=== PATIENT | female | born 1990 | race Caucasian/White ===

== ENCOUNTER → 2019-04-02 | Outpatient (CLI) | payer OTHER ==
[2019-04-02 17:24] LABS: BASO # 0.1 10^3/uL (0.0-0.2); BASO % 0.4 % (0.0-1.0); EOS # 0.1 10^3/uL (0.0-0.50); EOS % 0.9 % (0.0-3.0); LYMPH # 3.7 10^3/uL (1.5-6.5); LYMPH % 27.2 % (24.0-44.0); MEAN CORPUSCULAR HEMOGLOBIN 31.7 pg (27.0-33.0); MEAN CORPUSCULAR HGB CONC 34.1 g/dl (32.0-36.5); MONO # 0.9 10^3/uL (0.0-0.8); MONO % 6.7 % (0.0-5.0); NEUTROPHILS # 8.8 10^3/uL (1.8-7.7); NEUTROPHILS % 64.2 % (36.0-66.0); PLATELET COUNT, AUTOMATED 237 10^3/uL (150-450); RED BLOOD COUNT 4.41 10^6/uL (4.00-5.40); WHITE BLOOD COUNT 13.8 10^3/uL (4.0-10.0)
[2019-04-02 20:31] LABS: CHLAMYDIA DNA AMPLIFICATION NEGATIVE (NEGATIVE); GC DNA AMPLIFICATION NEGATIVE (NEGATIVE)
[2019-04-04 10:45] LABS: HEPATITIS C VIRUS ABY INDEX 0.1 INDEX (<0.8); HIV 1&2 SCREEN CENTAUR NEGATIVE (NEGATIVE); RUBELLA IgG QUALITATIVE IMMUNE (IMMUNE)
== END ==
LOC: M SMT 14:40
PROVIDERS: ATTEND Advanced Practice Midwife
DX: Z36.89 Encounter for other specified antenatal screening (principal)

== ENCOUNTER → 2019-05-28 | Outpatient (CLI) | payer OTHER ==
[~2019-05-28] MED LIST: CEFD300CAP PO
== END ==
LOC: M SMT 13:50
PROVIDERS: ATTEND Advanced Practice Midwife
DX: Z13.79 Encounter for other screening for genetic and chromosomal anomalies (principal)

== ENCOUNTER 2019-06-02 15:03 | Emergency (ER) | payer OTHER ==
[~2019-06-02] VITALS: Ht 157.5 cm; Wt 86.3 kg
[2019-06-02] MEDS: IPRATROPIUM 0.5MG/ALBUTEROL 2.5MG INH SOL UD 3ML (DUONEB)(J7620) NEB PRN ×2 (17:21→19:29)
[2019-06-02 17:27] LABS: BASO % 0.3 % (0.0-1.0); EOS # 0.1 10^3/uL (0.0-0.5); EOS % 0.6 % (0.0-3.0); HEMATOCRIT 34.4 % (36.0-47.0); HEMOGLOBIN 11.9 g/dl (12.0-15.5); LYMPH # 2.4 10^3/uL (1.5-5.0); MEAN CORPUSCULAR HEMOGLOBIN 32.3 pg (27.0-33.0); MEAN CORPUSCULAR HGB CONC 34.6 g/dl (32.0-36.5); MEAN CORPUSCULAR VOLUME 93.5 fl (80.0-96.0); MONO # 0.6 10^3/uL (0.0-0.8); NEUTROPHILS # 8.3 10^3/uL (1.5-8.5); NEUTROPHILS % 72.6 % (36.0-66.0); PLATELET COUNT, AUTOMATED 180 10^3/uL (150-450); RED BLOOD COUNT 3.68 10^6/uL (4.00-5.40); WHITE BLOOD COUNT 11.5 10^3/uL (4.0-10.0)
[2019-06-02 17:48] LABS: BLOOD UREA NITROGEN 5 MG/DL (7-18); CALCIUM LEVEL 8.9 MG/DL (8.5-10.1); CARBON DIOXIDE LEVEL 24 MEQ/L (21-32); CHLORIDE LEVEL 106 MEQ/L (98-107); CK-MB VALUE MASS < 1.0 NG/ML (<3.6); CPK CREATINE PHOSPHOKINASE 43 U/L (26-192); CREATININE FOR GFR 0.55 MG/DL (0.55-1.30); GLOMERULAR FILTRATION RATE > 60.0 (>60); GLUCOSE, FASTING 79 MG/DL (70-100); MB/CK RELATIVE INDEX 2.33 (< OR =4); POTASSIUM SERUM 3.5 MEQ/L (3.5-5.1); SODIUM LEVEL 140 MEQ/L (136-145); TROPONIN I < 0.02 NG/ML (< 0.10)
[2019-06-02] MEDS ORDERED: CEFDINIR 300 MG CAP (OMNICEF) PO ONE (19:15)
[2019-06-02] MEDS ORDERED: CEFD300CAP PO (19:16)
[2019-06-02 20:03] VITALS: BP 122/75
--- NOTE | 2019-06-02 21:02 | ECGEPIP ---
[facility] - ED Test Date: 2019-06-02 Pat Name: MORALES SCOTT Department: Room: - Gender: Female Licensed Home Inspector: matthieu : 1990 Requested By: Haritha Deleon Order Number: [id number] Reading MD: Haritha Deleon Measurements Intervals [place] Rate: 109 P: 42 ID: [id number] QRS: 43 QRSD: 86 T: 24 QT: 337 QTc: 454 Interpretive Statements SINUS TACHYCARDIA ABNORMAL RHYTHM ECG NO PRIOR Electronically Signed on 06-02-2019 21:01:46 EDT by Haritha Deleon
== END 2019-06-02 20:07 | disposition home or self-care (01) ==
LOC: M ED 15:03
DX: O99.512 Diseases of the respiratory system complicating pregnancy, second trimester (principal); J18.9 Pneumonia, unspecified organism; Z3A.18 18 weeks gestation of pregnancy; J45.909 Unspecified asthma, uncomplicated; Z86.59 Personal history of other mental and behavioral disorders; Z87.19 Personal history of other diseases of the digestive system; Z88.0 Allergy status to penicillin

== ENCOUNTER → 2019-06-05 | Outpatient (CLI) | payer OTHER ==
--- NOTE | 2019-06-05 16:52 | REP ---
OB ULTRASOUND: Real-time sonographic evaluation of the gravid uterus performed. There is a single living intrauterine gestation, estimated gestational age 19 weeks, EDC 10/30/2019. Today's measurements indicate appropriate growth. BPD 44 mm = 19 weeks 2 days, 57th percentile HC 163 mm = 19 weeks 0 days, 51st percentile AC 137 mm = 19 weeks 1 days, 53rd percentile FL 30 mm = 19 weeks 2 days, 58th percentile HC/AC ratio 1.19, within normal range. Estimated weight 280 grams, 55th percentile. Cervix is closed and measures 4.3 cm in length. heart rate 144 beats per minute. SEEN/GROSSLY UNREMARKABLE Lateral ventricles yes Posterior fossa yes Upper lip no Four-chamber heart yes LVOT yes RVOT yes Stomach yes Cord insertion yes Three vessel cord yes Kidneys no Bladder yes Spine no position: Transverse with head toward the maternal right side. Placenta: Posterior and grade 0 with no previa or abruption. Amniotic fluid: Within normal limits. Electronically Signed by Rainer Goldman MD 06/05/2019 06:07 P
== END ==
LOC: M RAD 12:45
PROVIDERS: ATTEND Advanced Practice Midwife
DX: Z34.82 Encounter for supervision of other normal pregnancy, second trimester (principal); Z36.89 Encounter for other specified antenatal screening; Z3A.19 19 weeks gestation of pregnancy

== ENCOUNTER → 2019-07-22 | Outpatient (CLI) | payer OTHER ==
--- NOTE | 2019-07-22 12:20 | REP ---
OB ULTRASOUND: Real-time sonographic evaluation of gravid uterus performed. There is a single living intrauterine gestation, estimated gestational age 25 weeks 5 days, EDC 10/30/2019. Today's measurements indicate appropriate growth BPD 60 mm = 24 weeks 4 days, 26th percentile HC 230 mm = 25 weeks 0 days, 35th percentile AC 211 mm = 25 weeks 4 days, 40th percentile Femur length 47 mm = 25 weeks 6 days, 53rd percentile HC/AC ratio 1.09, within normal range. Estimated weight 826 grams, 39th percentile. Cervix is closed and measures 4.3 cm in length. heart rate 141 beats per minute. Visualized anatomy includes upper lip, kidneys, and spine, which were not seen on the prior study of 06/05/2019. These structures are grossly unremarkable. position is vertex. Placenta is posterior and grade 0 with no previa or abruption. Amniotic fluid within normal limits. Electronically Signed by Rainer Goldman MD 07/23/2019 10:31 A
== END ==
LOC: M RAD 10:39
PROVIDERS: ATTEND Advanced Practice Midwife
DX: Z34.82 Encounter for supervision of other normal pregnancy, second trimester (principal); Z3A.25 25 weeks gestation of pregnancy

== ENCOUNTER → 2019-07-27 | Outpatient (REF) | payer OTHER ==
[2019-07-27 20:13] LABS: CHLAMYDIA DNA AMPLIFICATION NEGATIVE (NEGATIVE); GC DNA AMPLIFICATION NEGATIVE (NEGATIVE)
== END ==
LOC: M SFHCLERA 17:00
PROVIDERS: ATTEND Nurse Practitioner Family
DX: N89.8 Other specified noninflammatory disorders of vagina (principal)
CPT/HCPCS: 81002; 81025; 87070; 87661; G0463

== ENCOUNTER → 2019-08-19 | Outpatient (REF) | payer OTHER | LOC: M SFHCLERA 16:26 | PROVIDERS: ATTEND Nurse Practitioner Family | DX: R53.81 Other malaise (principal) ==

== ENCOUNTER → 2019-09-05 | Outpatient (CLI) | payer OTHER ==
[2019-09-05 17:26] LABS: HEMATOCRIT 36.3 % (36.0-47.0); HEMOGLOBIN 11.2 g/dl (12.0-15.5); MEAN CORPUSCULAR HEMOGLOBIN 28.7 pg (27.0-33.0); MEAN CORPUSCULAR HGB CONC 30.9 g/dl (32.0-36.5); MEAN CORPUSCULAR VOLUME 93.1 fl (80.0-96.0); PLATELET COUNT, AUTOMATED 198 10^3/uL (150-450); WHITE BLOOD COUNT 10.5 10^3/uL (4.0-10.0)
== END ==
LOC: M PLALAB 13:41
PROVIDERS: ATTEND Advanced Practice Midwife
DX: Z34.82 Encounter for supervision of other normal pregnancy, second trimester (principal); Z3A.00 Weeks of gestation of pregnancy not specified

== ENCOUNTER → 2019-09-15 | Outpatient (CLI) | payer OTHER ==
[~2019-09-15] MED LIST changes: +ACET-683 PO; +IBUP80TA PO; +OMEP-218 PO; +PRENTAB9 PO; +TUMS750C5 PO
--- NOTE | 2019-09-16 02:34 | REP ---
Clinical: Anatomical evaluation. Comparison: 07/22/2019. Findings: Examination demonstrates a single live intrauterine in cephalic presentation. motion is identified by technologist. Placenta is noted posterior and grade I I without evidence for placenta previa or abruption. Amniotic fluid volume is normal. Cervix measures 3.7 cm in length and appears closed. No evidence for nuchal cord. Gestational age by LMP 33 weeks 4 days with EMILY 10/30/2019 . Gestational age by first US 33 weeks 4 days with EMILY 10/30/2019 . FHR equals 132 beats per minute. Amniotic fluid index: 14.2 cm. Biophysical profile score: 8/8 Impression: Single live advanced gestation in cephalic presentation. Amniotic fluid index and biophysical profile score are normal.
== END ==
LOC: M WHC 12:59
PROVIDERS: ATTEND Advanced Practice Midwife
DX: O36.8390 Maternal care for abnormalities of the fetal heart rate or rhythm, unspecified trimester, not applicable or unspecified (principal); Z3A.33 33 weeks gestation of pregnancy

== ENCOUNTER → 2019-09-19 | Outpatient (CLI) | payer OTHER ==
[~2019-09-19] MED LIST changes: -ACET-683 PO; -IBUP80TA PO; -OMEP-218 PO; -PRENTAB9 PO; -TUMS750C5 PO
== END ==
LOC: M LAB 08:35
PROVIDERS: ATTEND Advanced Practice Midwife
DX: R73.02 Impaired glucose tolerance (oral) (principal)

== ENCOUNTER → 2019-10-09 | Outpatient (REF) | payer OTHER ==
[~2019-10-09] MED LIST changes: +OMEP-218 PO; +PRENTAB9 PO; +TUMS750C5 PO
== END ==
LOC: M WHC 10:23
PROVIDERS: ATTEND Advanced Practice Midwife
DX: O99.213 Obesity complicating pregnancy, third trimester (principal); Z36.85 Encounter for antenatal screening for Streptococcus B; Z3A.00 Weeks of gestation of pregnancy not specified

== ENCOUNTER 2019-10-11 07:31 | Inpatient (IN) | payer OTHER ==
[~2019-10-11] VITALS: Ht 157.5 cm; Wt 84.3 kg
[2019-10-11] VITALS (9 sets, daily range): BP systolic 109–132; BP diastolic 63–80
[~2019-10-11 07:31] MED LIST changes: -OMEP-218 PO; -PRENTAB9 PO; -TUMS750C5 PO
[2019-10-11] MEDS ORDERED: TUMS750C5 PO (08:29)
[2019-10-11] MEDS ORDERED: PRENTAB9 PO (08:29)
[2019-10-11] MEDS ORDERED: OMEP-218 PO (08:34)
[2019-10-11 08:36] LABS: HEMATOCRIT 34.1 % (36.0-47.0); HEMOGLOBIN 10.8 g/dl (12.0-15.5); MEAN CORPUSCULAR HEMOGLOBIN 27.3 pg (27.0-33.0); MEAN CORPUSCULAR HGB CONC 31.7 g/dl (32.0-36.5); MEAN CORPUSCULAR VOLUME 86.3 fl (80.0-96.0); PLATELET COUNT, AUTOMATED 201 10^3/uL (150-450); RED BLOOD COUNT 3.95 10^6/uL (4.00-5.40); WHITE BLOOD COUNT 12.8 10^3/uL (4.0-10.0)
[2019-10-11] MEDS ORDERED: INSULIN HUMAN REGULAR 100 UNITS in NS 99 ML IV SCH ×2 (08:45)
[2019-10-11] MEDS ORDERED: INSULIN IV RATE CHANGE DOCUMENTATION ML/HR XX SCH (08:45)
[2019-10-11] MEDS: miSOPROStol 50 MCG 1/2 TAB (S0191) PO SCH ×2 (08:55→12:58)
--- NOTE | 2019-10-11 08:55 | HPEPDOC ---
Obstetrical History & Physical General Date of Admission Oct 11, 2019 at 07:31 History of Present Illness Mrs. Escamilla is a 29-year-old 5, para 2 at 37 weeks 2 days estimated gestational age by LMP, confirmed by first trimester ultrasound, here for induction of labor due to noncompliant gestational diabetes Chief Complaint: Induction of labor Information Provided By: Patient Age: 29 : 5 Term: 2 Livin Care Care: Good Care Dating Final EDC: Oct 30, 2019 Final EDC for Daily Update: Oct 30, 2019 Final EDC by: LMP, 1st trimester (US) LMP: January 23, 2019 EGA at Admission: 37 Antepartum Course Diagnos(e)s Gestational diabetes Past Medical History Past Obstetrical History : Past Obstetrical History: Multigravida Type of Delivery: Spontaneous Vaginal Del. FEED ADVISER History: Endometriosis, Abnormal Pap, Herpes simplex virus(HSV), History of STD Past Medical History Surgical History: Diagnostic laparoscopy, Dilatation and Curettage, Tonsil ectomy Family History Significant Family History: Diabetes, Heart disease Social History Psychosocial History: Anxiety, Depression, PTSD Alcohol: Denies Drugs: denies Allergies Coded Allergies: amoxicillin (Verified Allergy, Intermediate, hives, 06/02/19) Medications Scheduled Omeprazole (Omeprazole) 20 Mg Capsule.dr, 1 CAP PO DAILY No.137/Iron/Folic Acd ( Vitamin Tablet) 1 Each Tablet, 1 TAB PO DAILY Scheduled PRN Calcium Carbonate (Tums) 300 Mg Tab.chew, 750 MG PO Q4HP PRN for HEARTBURN Physical Examination Physical Examination GENERAL: Alert and oriented times three. BREAST: . ABDOMEN: Gravid and non-tender to touch. FETUS: Is vertex (VTX) by sterile vaginal examination (SVE), fetus is vertex (VTX) by Dyllan. HEART RATE: Regular rate and rhythm. LUNGS: Clear to auscultation (CTA). EXTREMITIES: No edema. No clonus. Deep tendon reflexes (DTRs) + . Laboratory Data 24H LABS Laboratory Tests 2 10/11/19 07:42: Serology Scanned Report Hepatitis B Testing 10/11/19 08:25: Nucleated Red Blood Cells % (auto) 0.0 CBC/BMP Laboratory Tests 10/11/19 08:25 Pertinent Laboratoy Data Blood Type: A+ RBC Antibody Screen: Negative HIV: Negative Hepatitis B: Negative Hepatitis C: Negative Rapid Plasma Reagin: Nonreactive Rubella: Immune Chlamydia/Gonorrhea: Negative Group B Streptococcus: Negative Anatomy Ultrasound Placenta Location: Posterior Normal Anatomy: Yes Placenta Previa: No Vaginal Examination Dilation: 1cm Station: -3 Cervical Consistency: Medium Cervical Position: Middle Presentation: Cephalic presentation Assessment Heart Rate (FHR): 140 Variability: Moderate Accelerations: Positive Decelerations: None Tocometer Contractions: No Assessment/Plan Assessment Mrs. Escamilla is a 21-year-old 5, para 2 at 37 weeks 2 days estimated gestational age with noncompliant gestational diabetes, here for induction of labor. 2. Reassuring status Plan Admit and orient. Starter Cup Powder Mixer and consent. Group B Streptococcus (GBS) negative. Labs and intravenous (IV) per unit protocol. Counseled on Pitocin and induction of labor (IOL). Anticipate normal spontaneous delivery (). C-S as appropriate. LEAH BARRIENTOS MD. Oct 11, 2019 08:55
[2019-10-11] MEDS: CALCIUM CARBONATE 500 MG CHEW U/D PO PRN ×2 (11:46→15:47)
[2019-10-11] MEDS ORDERED: LR 1,000 ML IV SCH (18:09)
[2019-10-11] MEDS ORDERED: OXYTOCIN DRIP 30 UNITS in IV 1 EA IV SCH (18:15)
[2019-10-11] MEDS: NS 1,000 ML IV SCH (18:30)
[2019-10-11] MEDS ORDERED: CALCIUM CARBONATE 500 MG CHEW U/D PO ONE (20:45)
[2019-10-11] MEDS ORDERED: PROMETHAZINE INJ 25 MG/ML VIAL (J2550) IV ONE (21:15)
[2019-10-11] MEDS ORDERED: BUTORPHANOL 2 MG/ML INJ (J0595) IV ONE (21:15)
[2019-10-12] VITALS (111 sets, daily range): BP systolic 83–149; BP diastolic 50–82
[2019-10-12] MEDS: CALCIUM CARBONATE 500 MG CHEW U/D PO PRN ×4 (03:05→23:13)
[2019-10-12] MEDS: D5W/0.9% SODIUM CHLORIDE 1,000 ML IV SCH ×2 (07:34→17:29)
[2019-10-12] MEDS ORDERED: FENTANYL 2MCG/ML ROPIVACAINE 0.2% IN 0.9% NACL 100ML IVBAG As Ordered ONE (08:08)
[2019-10-12] MEDS: FENTANYL/ROPIVACAINE/NACL BAG 100 ML EPIDURAL SCH ×3 (08:52→19:20)
--- NOTE | 2019-10-12 08:54 | IPNPDOC ---
Obstetrical Progress Note Date of Service Oct 12, 2019 Subjective Doing well currently requesting epidural for pain control Objective Vital Signs Date Time Temp Pulse Resp B/P (MAP) Pulse Ox O2 Delivery O2 Flow Rate FiO2 10/12/19 05:54 84 109/72 (84) 10/12/19 04:54 18 10/11/19 18:01 97.7 Assessment Heart Rate (FHR): 140 Variability: Moderate Accelerations: Positive Heart Rate Tracing: Category I Tocometer Contractions: Yes Frequency: regular Sterile Vaginal Examination Dilation: 3 cm Effacement (%): 50% Station: -3 Cervical Consistency: Soft Cervical Position: Anterior Postion/Presentation: Cephalic presentation Assessment and Plan Status: Reassuring Group B Streptococcus: Negative Anticipate: Vaginal Delivery LEAH BARRIENTOS MD. Oct 12, 2019 08:54
[2019-10-12] MEDS: NS 1,000 ML IV SCH ×3 (09:27→17:29)
[2019-10-12] MEDS: ePHEDrine SULFATE 25 MG/5 ML(5MG/ML) SYRINGE IV PRN ×3 (09:28→09:43)
[2019-10-12] MEDS ORDERED: ONDANSETRON 4MG/2ML VIAL (J2405) IV PRN (09:30)
[2019-10-12] MEDS ORDERED: EPIDURAL/PCA KEYS XX PRN (09:30)
[2019-10-12] MEDS ORDERED: NALOXONE INJ 0.4 MG/1 ML VIAL (J2310) IV PRN (09:30)
[2019-10-12] MEDS ORDERED: REFRIGERATOR IV KEYS XX PRN (09:30)
[2019-10-12] MEDS ORDERED: EPIDURAL COMMENT XX SCH (09:30)
[2019-10-12] MEDS ORDERED: LACTATED RINGER'S 1000 ML IV PRN (09:30)
[2019-10-12] MEDS ORDERED: diphenhydrAMINE INJ 50MG/ML VIAL (J1200) IV PRN (09:30)
--- NOTE | 2019-10-12 20:42 | IPNPDOC ---
Obstetrical Progress Note Date of Service Oct 12, 2019 Subjective Feeling more uncomfortable Objective Vital Signs Date Time Temp Pulse Resp B/P (MAP) Pulse Ox O2 Delivery O2 Flow Rate FiO2 10/12/19 19:38 99.5 96 16 10/12/19 19:32 114/64 (81) Assessment Heart Rate (FHR): 140 Variability: Moderate Accelerations: Positive Decelerations: Variable Tocometer Contractions: Yes Frequency: regular Sterile Vaginal Examination Dilation: 6 cm Effacement (%): 80% Station: -2 Cervical Consistency: Soft Cervical Position: Anterior Postion/Presentation: Cephalic presentation Assessment and Plan Status: Reassuring Group B Streptococcus: Negative Anticipate: Vaginal Delivery LEAH BARRIENTOS MD. Oct 12, 2019 20:42
[2019-10-13] VITALS (10 sets, daily range): BP systolic 102–128; BP diastolic 58–79
[2019-10-13] MEDS ORDERED: OXYTOCIN DRIP 30 UNITS in IV 1 EA IV SCH (00:13)
[2019-10-13] MEDS ORDERED: DOCUSATE SODIUM 100 MG CAP PO PRN (00:15)
[2019-10-13] MEDS ORDERED: ACETAMINOPHEN TAB 650MG DOSE (2X325MG) PO PRN (00:15)
[2019-10-13] MEDS ORDERED: METHYLERGONOVINE MALEATE 0.2 MG TAB PO PRN (00:15)
[2019-10-13] MEDS ORDERED: IBUPROFEN 600 MG TAB PO PRN (00:15)
[2019-10-13] MEDS ORDERED: RHOGAM 300 MCG (1500 IU) INJ (J2790) IM SCH (00:15)
[2019-10-13] MEDS ORDERED: DIBUCAINE 1% OINTMENT 30GM TOP PRN (00:15)
[2019-10-13] MEDS ORDERED: MEASLES,MUMPS,RUBELLA VACCINE INJ (MMR-II) (90707) SC SCH (00:15)
[2019-10-13] MEDS ORDERED: ANUSOL HC CREAM 30GM TOP PRN (00:15)
[2019-10-13] MEDS ORDERED: ACETAMINOPHEN 500 MG TAB PO PRN (00:15)
[2019-10-13] MEDS ORDERED: MOM 30ML SUSPENSION UDC PO PRN (00:15)
--- NOTE | 2019-10-13 00:19 | DNPDOC ---
[facility] Delivery Note Delivery Note DATE OF DELIVERY: 10/12/2019 PREDELIVERY DIAGNOSIS: 37-3/7 weeks' gestation and labor. POST DELIVERY DIAGNOSIS: Delivered. PROCEDURE: Spontaneous vaginal delivery. CRITICAL CARE RN: Dr. Joseph ANESTHESIA:. Epidural. ESTIMATED BLOOD LOSS:. 300 mL. FINDINGS: 6 pound 6 ounce, female , Score, 8/9, nuchal cord times 1. LACERATIONS: None COUNTS: 10 laparotomy sponges accounted for prior to after delivery. DELIVERY NOTE: 10/12/2019, Mrs. Escamilla had a spontaneous vaginal delivery of viable female , Apgars 8 and 9, and weight was, 2890 grams or 6 pounds 6 ounces. Head was delivered [occiput anterior (OA). Nuchal cord was manually reduced followed by delivery of the shoulders and corpus. Infant was handed to mom with a good cry. Cord was clamped times two and was cut by the father of baby under my direction. Placenta was then drained and delivered grossly intact. A premixed bag of 500 mL of normal saline with 30 units of Pitocin was then bolused along with uterine massage until the uterus was firm. On inspection, cervix, vagina, perineum was grossly intact and hemostatic. Mom and baby in recovery on stable condition. The couples decided to remain in daughter LEAH Wells MD. Oct 13, 2019 00:19
--- NOTE | 2019-10-13 08:33 | IPNPDOC ---
Progress Note Date of Service: Oct 13, 2019 Day#: 1 Progress Note SUBJECT: Patient is doing well day # 1. She has been ambulating, vo iding spontaneously without issue and PO fluid intake. Breast feeding with assistance of nipple shield. Reports lochia is like a normal period. Patient is ambulating well. Reports pain is well-controlled. Patient is requesting to restart her antidepressant medication. She reports she was taking 30mg Celexa daily prior to . Patient scored 15 on her EPDS. OBJECTIVE: VITAL SIGNS: Within normal limits, afebrile. Alert and oriented times three. Breath sounds clear to auscultation. Heart rate: Regular rate and rhythm, no murmurs, rubs or gallops. Abdomen: Fundus firm at U. Soft, appropriately tender to palpation. Minimal lochia. ASSESSMENT: Day 1 PLAN: 1. Discharge to home tomorrow. 2. Tylenol and Motrin for pain. 3. Encourage breast feeding and ambulation. 4. Initiate Celexa 10mg PO daily per patient's request. [facility] Vital Signs Date Time Temp Pulse Resp B/P (MAP) Pulse Ox O2 Delivery O2 Flow Rate FiO2 10/13/19 06:00 98.8 72 16 102/58 (73) 10/12/19 22:00 Room Air I&O- Last 24 Hours up to 6 AM 10/13/19 06:00 Intake Total 6708 ml Output Total 3800 ml Balance 2908 ml Laboratory Data 24H LABS Laboratory Tests 2 10/12/19 09:19: Bedside Glucose (Misc Panel) 166H 10/12/19 11:23: Bedside Glucose (Misc Panel) 68L 10/12/19 13:26: Bedside Glucose (Misc Panel) 77 10/12/19 15:22: Bedside Glucose (Misc Panel) 83 10/12/19 17:20: Bedside Glucose (Misc Panel) 56L 10/12/19 19:26: Bedside Glucose (Misc Panel) 94 10/12/19 21:27: Bedside Glucose (Misc Panel) 83 10/12/19 23:16: Bedside Glucose (Misc Panel) 86 ERIN CHAPMAN CNM Oct 13, 2019 08:33
[2019-10-13] MEDS ORDERED: CitaloPRAM (CeleXA) 10 MG TABLET PO ONE (09:00)
[2019-10-13] MEDS: PRENATAL VITAMINS CHEWABLE TABLET PO SCH (09:07)
[2019-10-13] MEDS: IBUPROFEN 800 MG TAB PO PRN ×2 (11:22→20:43)
[2019-10-13] MEDS ORDERED: SLF 3 ML SYR IV PRN (13:15)
[2019-10-13] MEDS: SLF 3 ML SYR IV SCH ×2 (13:50→22:00)
[2019-10-13] MEDS ORDERED: ADACEL/BOOSTRIX VACCINE (DIPHTH/PERTUSS/ACELL/TETANUS)0.5ML SYR (90715) IM ONE (14:00)
[2019-10-14] MEDS: SLF 3 ML SYR IV SCH (05:13)
[2019-10-14 05:44] VITALS: BP 116/70
[2019-10-14] MEDS ORDERED: ACET-683 PO (07:29)
[2019-10-14] MEDS ORDERED: IBUP80TA PO (07:29)
[2019-10-14] MEDS: IBUPROFEN 800 MG TAB PO PRN (07:51)
[2019-10-14] MEDS: PRENATAL VITAMINS CHEWABLE TABLET PO SCH (09:05)
== END 2019-10-14 12:15 | disposition home or self-care (01) | DRG 807 ==
LOC: M LDI 07:31 → M OBS 10-13 02:46
PROVIDERS: ADMIT Obstetrics & Gynecology; ATTEND Obstetrics & Gynecology
PROC: 10E0XZZ Delivery of Products of Conception, External Approach (ICD-10-PCS; principal; 2019-10-12)
PROC: 3E033VJ Introduction of Other Hormone into Peripheral Vein, Percutaneous Approach (ICD-10-PCS; 2019-10-12)
DX: O24.429 Gestational diabetes mellitus in childbirth, unspecified control (principal); Z37.0 Single live birth; Z91.19 Patient's noncompliance with other medical treatment and regimen; Z3A.37 37 weeks gestation of pregnancy; Z88.0 Allergy status to penicillin; O69.82X0 Labor and delivery complicated by other cord entanglement, without compression, not applicable or unspecified